=== PATIENT | male | born 1950 | race Caucasian/White ===

== ENCOUNTER → 2021-09-23 | Outpatient (CLI) | payer MEDICARE ==
[~2021-09-23] MED LIST: GADOTERATE MEGLUMINE 10 MMOL/20 ML VIAL IV ONE
== END | disposition home or self-care (01) ==
LOC: RAH 09:22
PROVIDERS: ATTEND Nurse Practitioner Adult Health
DX: R42 Dizziness and giddiness (principal); R26.81 Unsteadiness on feet
CPT/HCPCS: 70553; A9575

== ENCOUNTER → 2024-12-11 | Outpatient (CLI) | payer MEDICARE ==
--- NOTE | 2024-12-11 22:29 | HMCIMG ---
EXAM: MRI THORACIC SPINE WITHOUT INTRAVENOUS CONTRAST Technique: Multiplanar, multisequence magnetic resonance imaging of the thoracic spine was performed without intravenous contrast, including sagittal T1- and T2-weighted and STIR sequences and axial T2-weighted acquisitions. Contrast: No intravenous contrast administered. Clinical Information: Pain in the thoracic spine. Findings: Alignment: Normal thoracic alignment without spondylolisthesis. Vertebral bodies: Vertebral body heights are maintained without compression fracture; benign hemangiomas are present in T6 and T10. Intervertebral discs: Thoracic discs are desiccated with preserved heights. Spinal cord: Cord caliber and signal are normal. Conus medullaris: Terminates at T12. Paraspinal soft tissues: No edema or focal soft-tissue abnormality. [id number]: T1???2: Disc intact, facet articulations intact, ligamentum flavum normal, canal and lateral recesses without stenosis, and neural foramina patent. T2???3: Disc intact, facet articulations intact, ligamentum flavum normal, canal and lateral recesses without stenosis, and neural foramina patent. T3???4: Disc intact, facet articulations intact, ligamentum flavum normal, canal and lateral recesses without stenosis, and neural foramina patent. T4???5: Disc intact, facet articulations intact, ligamentum flavum normal, canal and lateral recesses without stenosis, and neural foramina patent. T5???6: Disc intact, facet articulations intact, ligamentum flavum normal, canal and lateral recesses without stenosis, and neural foramina patent. T6???7: Disc intact, facet articulations intact, ligamentum flavum normal, canal and lateral recesses without stenosis, and neural foramina patent. T7???8: Disc intact, facet articulations intact, ligamentum flavum normal, canal and lateral recesses without stenosis, and neural foramina patent. T8???9: Disc intact, facet articulations intact, ligamentum flavum normal, canal and lateral recesses without stenosis, and neural foramina patent. T9???10: Disc intact, facet articulations intact, ligamentum flavum normal, canal and lateral recesses without stenosis, and neural foramina patent. T10???11: Disc intact, facet articulations intact, ligamentum flavum normal, canal and lateral recesses without stenosis, and neural foramina patent. T11???12: Disc intact, facet articulations intact, ligamentum flavum normal, canal and lateral recesses without stenosis, and neural foramina patent. T12???L1: Disc intact, facet articulations intact, ligamentum flavum normal, canal and lateral recesses without stenosis, and neural foramina patent. L1???2 (visualized junction): Disc intact, facet articulations intact, ligamentum flavum normal, canal and lateral recesses without stenosis, and neural foramina patent. IMPRESSION: 1. Mild thoracic spondylosis with disc desiccation and preserved disc heights, without central canal or foraminal stenosis from T1-2 through T12-L1. 2. Benign vertebral body hemangiomas at T6 and T10. 3. Normal thoracic spinal cord signal and morphology with the conus medullaris terminating at T12. 4. Normal thoracic alignment without spondylolisthesis or compression fracture. 5. No paraspinal soft tissue abnormalities. /[place]
--- NOTE | 2024-12-11 22:30 | HMCIMG ---
EXAM: MRI CERVICAL SPINE WITHOUT INTRAVENOUS CONTRAST Technique: Multiplanar, multisequence magnetic resonance imaging of the cervical spine was performed without intravenous contrast, including sagittal T1- and T2-weighted and STIR sequences and axial T2-weighted acquisitions. Contrast: No intravenous contrast administered. Clinical Information: Cervical spondylosis. Findings: Alignment: Straightening of the normal cervical lordosis with mild retrolisthesis of C3 on C4. Vertebral bodies: Vertebral body heights are maintained without compression deformity; anterior cervical discectomy and fusion spanning C4???C6 is present. Intervertebral discs: Mild disc height loss and mild disc desiccation at C3???4 and C6???7; other levels are preserved. Spinal cord: No abnormal cord signal is identified. Bone marrow signal: No suspicious marrow signal abnormality. Craniovertebral junction: No Chiari malformation. Paraspinal soft tissues: No abnormal fluid collection, edema, or mass. [id number]: C2???3: Shallow disc bulge with left paramedian/foraminal protrusion; moderate left foraminal stenosis with mild impingement of the exiting left C3 nerve root; no central canal stenosis; facet joints intact. C3???4: Disc height reduction with diffuse disc bulge; severe bilateral foraminal stenosis with impingement of the exiting C4 nerve roots; moderate to severe central canal stenosis. C4???5: Diffuse disc-osteophyte complex; severe bilateral foraminal stenosis; no central canal stenosis; facet joints intact. C5???6: Diffuse disc-osteophyte complex; severe bilateral foraminal stenosis; no central canal stenosis; facet joints intact. C6???7: Diffuse disc-osteophyte complex; severe bilateral foraminal stenosis; no central canal stenosis; facet joints intact. C7???T1: No significant disc bulge; canal is patent; foramina are patent; facet joints intact. Impression: * Multilevel cervical spondylosis with severe bilateral neural foraminal stenosis from C3???4 through C6???7 (greatest at C3???4 to C6???7) and moderate left foraminal stenosis at C2???3; correlates with multilevel cervical radiculopathy. Consider referral to spine surgery or interventional pain management for targeted therapy (e.g., selective nerve root blocks) as clinically indicated. * Moderate to severe central canal stenosis at C3???4; no other level demonstrates central canal stenosis. * Postoperative changes of anterior cervical discectomy and fusion at C4???C6 without complicating features. * Straightening of cervical lordosis with mild retrolisthesis of C3 on C4, which may be degenerative or positional. * No abnormal spinal cord signal. /[place]
--- NOTE | 2024-12-11 22:32 | HMCIMG ---
EXAM: MRI LUMBAR SPINE WITHOUT INTRAVENOUS CONTRAST Technique: Multiplanar, multisequence magnetic resonance imaging of the lumbar spine was performed without intravenous contrast, including sagittal T1-weighted, T2-weighted, and STIR sequences and axial T2-weighted acquisitions. Contrast: No intravenous contrast administered. Clinical Information: Vertebrogenic low back pain. Findings: Numbering assumption: The most inferior normal-caliber disc space is designated L5-S1 and there is no transitional vertebra; radiographs would be required to confirm numbering prior to intervention. Alignment: Mild straightening of the normal lumbar lordosis without spondylolisthesis. Vertebral bodies: Heights are maintained without compression deformity and a benign hemangioma is present in S1. Endplates and marrow: Type II Modic endplate changes are present at L5 and S1 and a Schmorl node is present in the inferior endplate of L4. Intervertebral discs: Diffuse disc desiccation is present with disc height loss greatest at L5-S1. Conus medullaris: Terminates at the L1 level with normal signal. Paraspinal soft tissues: No edema or focal soft-tissue abnormality is identified. [id number]: L1-2: Mild diffuse disc bulge with mild bilateral foraminal stenosis and no central canal stenosis; facet arthropathy and ligamentum flavum hypertrophy are present. L2-3: Diffuse disc bulge effacing the ventral thecal sac with severe bilateral foraminal stenosis and no central canal stenosis; facet arthropathy and ligamentum flavum hypertrophy are present; no definite exiting nerve root impingement is seen. L3-4: Diffuse circumferential disc bulge effacing the ventral thecal sac with severe bilateral foraminal stenosis and impingement of the exiting L3 nerve roots; no central canal stenosis; facet arthropathy and ligamentum flavum hypertrophy are present. L4-5: Diffuse circumferential disc bulge with superimposed protrusion effacing the ventral thecal sac with severe bilateral foraminal stenosis and impingement of the exiting L4 nerve roots and moderate to severe central canal stenosis; facet arthropathy and ligamentum flavum hypertrophy are present. L5-S1: Diffuse circumferential disc bulge contacting the ventral thecal sac with severe bilateral foraminal stenosis and impingement of the exiting L5 nerve roots and no central canal stenosis; facet arthropathy and ligamentum flavum hypertrophy are present. Impression: * Multilevel lumbar spondylosis with severe bilateral foraminal stenosis from L3-4 through L5-S1 (worst at L4-5 and L5-S1) and moderate to severe central canal stenosis at L4-5; imaging correlates with multilevel lumbar radiculopathy. * Type II Modic endplate changes at L5-S1 and diffuse disc desiccation with disc height loss greatest at L5-S1, compatible with vertebrogenic low back pain. * Benign vertebral hemangioma in S1 and Schmorl node in the inferior endplate of L4. * No abnormal cord signal, no compression fracture, and no paraspinal soft-tissue edema. /[place]
== END | disposition home or self-care (01) ==
LOC: RAH 12:33
PROVIDERS: ATTEND Orthopaedic Surgery
DX: M47.12 Other spondylosis with myelopathy, cervical region (principal); M48.02 Spinal stenosis, cervical region; M43.12 Spondylolisthesis, cervical region; M50.021 Cervical disc disorder at C4-C5 level with myelopathy; M50.022 Cervical disc disorder at C5-C6 level with myelopathy; M50.023 Cervical disc disorder at C6-C7 level with myelopathy; M25.78 Osteophyte, vertebrae; M47.817 Spondylosis without myelopathy or radiculopathy, lumbosacral region; M48.07 Spinal stenosis, lumbosacral region; M51.372 Other intervertebral disc degeneration, lumbosacral region with discogenic back pain and lower extremity pain; M40.46 Postural lordosis, lumbar region; D18.09 Hemangioma of other sites; M43.8X8 Other specified deforming dorsopathies, sacral and sacrococcygeal region; M50.01 Cervical disc disorder with myelopathy, high cervical region; M47.814 Spondylosis without myelopathy or radiculopathy, thoracic region; M48.05 Spinal stenosis, thoracolumbar region
CPT/HCPCS: 72141; 72146; 72148